=== PATIENT | female | born 1990 | race Caucasian/White ===

== ENCOUNTER 2017-08-06 09:33 | Emergency (ER) | payer OTHER ==
[~2017-08-06] VITALS: Ht 157.5 cm; Wt 73.0 kg
[2017-08-06 09:42] VITALS: BP 126/70; PULSE 74; RESP 16; TEMP 98.4; O2SAT 99
[2017-08-06] MEDS ORDERED: HYDROmorphone HCL PF 2 MG/ML VIAL IV PUSH ONE (10:00)
[2017-08-06] MEDS ORDERED: PROPOFOL 200 MG/20 ML AMP IV ONE (10:00)
[2017-08-06] MEDS ORDERED: ONDANSETRON HCL 4 MG/2 ML VIAL IV PUSH ONE ×2 (10:00→12:30)
[2017-08-06 11:00] VITALS: O2SAT 96
--- NOTE | 2017-08-06 11:13 | RADRPT ---
EXAM DATE/TIME: 08/06/2017 10:08 [facility] COMPARISON: No previous studies available for comparison. INDICATIONS : Right shoulder dislocation w/ no recent trauma. 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 SURGICAL HISTORY : None. ENCOUNTER: Initial ACUITY: 1 day PAIN SCORE: 10/10 LOCATION: Right shoulder FINDINGS: There is anterior/inferior rotation of the humerus with respect to the glenoid. No fracture seen. T he a.c. joint is intact. The visualized right upper ribs are intact. CONCLUSION: Anterior shoulder dislocation. Bg Chavez MD on August 06, 2017 at 11:11 Board Certified Radiologist. This report was verified electronically.
--- NOTE | 2017-08-06 11:34 | RADRPT ---
EXAM DATE/TIME: 08/06/2017 11:14 [facility] COMPARISON: SHOULDER RIGHT LTD (2VWS), August 06, 2017, 10:08. INDICATIONS : Post reduction right shoulder. MEDICAL HISTORY : None. SURGICAL HISTORY : None. ENCOUNTER: Subsequent ACUITY: 1 day PAIN SCORE: 0/10 LOCATION: Right shoulder FINDINGS: 2 view examination of the right shoulder status post reduction demonstrates anatomic alignment of the humeral head and glenoid. No fractures seen. CONCLUSION: Status post reduction of right shoulder dislocation. Bg Chavez MD on August 06, 2017 at 11:31 Board Certified Radiologist. This report was verified electronically.
--- NOTE | 2017-08-06 12:08 | PD ---
HPI Chief Complaint: Musculoskeletal Complaint Time Seen by Provider: 09:47 Travel History International Travel<30 days: No Contact w/Intl Traveler<30days: No Traveled to known affect area: No History of Present Illness HPI This 27-year-old female is complaining of right shoulder pain. She has had several dislocations in the past. She believes is dislocated now. She was putting her arm up when she had sudden onset of pain. She has no other injury. She has had a tubal ligation. She says the pain she is having now is quite severe and constant PFSH Past Medical History Medical History: Denies Significant Hx Diminished Hearing: No ?: Not LMP: now Menopausal: No : 2 Para: 1 Past Surgical History Surgical History: No Previous Surgery Tonsillectomy: Yes Social History Alcohol Use: No Tobacco Use: No Substance Use: No Allergies-Medications (Allergen,Severity, Reaction): Coded Allergies: No Known Allergies (Unverified Adverse Reaction, Unknown, 08/06/17) Reported Meds & Prescriptions Reported Meds & Active Scripts Active No Active Prescriptions or Reported Medications Review of Systems General / Constitutional: No: Fever, Chills HENT: No: Headaches Cardiovascular: No: Chest Pain or Discomfort Gastrointestinal: No: Nausea, Vomiting Skin: No Rash Neurologic: No: Weakness Endocrine: No: Heat Intolerance Hematologic/Lymphatic: No: Easy Bruising Physical Exam Narrative GENERAL: Well-developed female SKIN: Focused skin assessment warm/dry. HEAD: Atraumatic. Normocephalic. EYES: Pupils equal and round. No scleral icterus. No injection or drainage. ENT: No nasal bleeding or discharge. Mucous membranes pink and moist. NECK: Trachea midline. No JVD. CARDIOVASCULAR: Regular rate and rhythm. No murmur appreciated. RESPIRATORY: No accessory muscle use. Clear to auscultation. Breath sounds equal bilaterally. GASTROINTESTINAL: Abdomen soft, non-tender, nondistended. Hepatic and splenic margins not palpable. MUSCULOSKELETAL: There is a squared off deformity at the right shoulder. Good pulse in the right arm sensation NEUROLOGICAL: Awake and alert. No obvious cranial nerve deficits. Motor grossly within normal limits. Normal speech. PSYCHIATRIC: Appropriate mood and affect; insight and judgment normal. Data Data Last Documented VS Vital Signs Date Time Temp Pulse Resp B/P (MAP) Pulse Ox O2 Delivery O2 Flow Rate FiO2 08/06/17 11:00 96 08/06/17 11:00 2.00 08/06/17 10:55 16 08/06/17 09:42 98.4 74 126/70 (88) Orders Orders Ondansetron Inj (Zofran Inj) (08/06/17 10:00) Hydromorphone Pf Inj (Dilaudid Pf Inj) (08/06/17 10:00) Propofol 200 Mg/20 Ml Inj (Diprivan 200 (08/06/17 10:00) Shoulder, Limited(2vws) (08/06/17 09:47) Shoulder, Limited(2vws) (08/06/17 11:03) MDM Medical Decision Making Medical Screen Exam Complete: Yes Emergency Medical Condition: Yes Medical Record Reviewed: Yes Differential Diagnosis Differential includes dislocation right shoulder Narrative Course X-ray shows inferior dislocation of the shoulder. Conscious sedation was discussed with the patient. She was given 60 mg of intravenous propofol and after the sedation her shoulder has reduced. Repeat x-ray shows good position of the shoulder Procedures Procedure Narrative Informed consent for conscious sedation was obtained. Under cardiopulmonary monitoring the patient was given 60 mg of intravenous propofol and the shoulder has reduced with minimal manipulation Diagnosis Primary Impression: Dislocation of right shoulder joint Additional Instructions: Use sling for 2-3 days, follow-up with orthopedist Scripts No Active Prescriptions or Reported Meds Disposition: 01 DISCHARGE HOME Condition: Stable Tong Peoples MD Aug 06, 2017 12:08
[2017-08-06 13:01] VITALS: BP 126/74; PULSE 72; RESP 18; O2SAT 98
== END 2017-08-06 13:06 | disposition home or self-care (01) ==
LOC: PHED 09:33
DX: S43.014A Anterior dislocation of right humerus, initial encounter (principal)
CPT/HCPCS: 23650; 73030; 96374; 96375; 96376; 99283; J1170; J2405